=== PATIENT | female | born 1945 ===

== ENCOUNTER 2022-08-10 12:49 | Emergency (ER) | payer OTHER | END 2022-08-10 14:58 | disposition home or self-care (01) | LOC: MW.ED 12:49 | DX: G25.81 Restless legs syndrome (principal); Z76.0 Encounter for issue of repeat prescription; Z88.2 Allergy status to sulfonamides | CPT/HCPCS: 99281 ==

== ENCOUNTER 2022-09-02 14:06 | Emergency (ER) | payer OTHER ==
[2022-09-02] MEDS ORDERED: Sodium Chloride 0.9% 2.5 ML Syringe FLUSH PRN (14:25)
[2022-09-02] MEDS ORDERED: Sodium Chloride 0.9% 10 ML Syringe FLUSH PRN (14:25)
[2022-09-02] MEDS ORDERED: Ondansetron 4 MG/2 ML SDV IVPUSH ONE (14:26)
[2022-09-02] MEDS ORDERED: Sodium Chloride 0.9% 500 ML IV ONE (14:27)
[2022-09-02 15:45] LABS: CORONAVIRUS COVID-19 NAA NEGATIVE (NEGATIVE); INFLUENZA A NAA POSITIVE (NEGATIVE); INFLUENZA B NAA NEGATIVE (NEGATIVE)
[2022-09-02 15:48] LABS: CARBON DIOXIDE,CO2 31.1 mmol/L (21.0-32.0); POTASSIUM,K 3.6 mmol/L (3.5-5.1)
[2022-09-02] MEDS ORDERED: Oseltamivir 75 MG Cap PO ONE (16:38)
== END 2022-09-02 16:48 | disposition home or self-care (01) ==
LOC: MW.ED 14:06
DX: J10.1 Influenza due to other identified influenza virus with other respiratory manifestations (principal); Z88.6 Allergy status to analgesic agent; Z79.899 Other long term (current) drug therapy; Z20.822 Contact with and (suspected) exposure to COVID-19
CPT/HCPCS: 0240U; 36415; 70450; 71045; 80053; 81001; 83735; 84484; 85025; 85610; 96361; 96374; 99284; A9270; J2405; J3490; J7040